=== PATIENT | male | born 1945 | race Caucasian/White ===

== ENCOUNTER 2018-07-26 13:54 | Observation (INO) | payer BC, MEDICARE ==
[2018-07-26] MEDS ORDERED: ASPIRIN 81 MG TABLET, CHEWABLE PO ONE (14:26)
[2018-07-26] MEDS ORDERED: MAG HYDROX/AL HYDROX/SIMETH SUSP 30 ML UDCUP PO ONE (14:26)
[2018-07-26] MEDS ORDERED: METOCLOPRAMIDE HCL ORAL SOLN 10 MG/10 ML UDCUP PO ONE (14:26)
[2018-07-26] MEDS ORDERED: LIDOCAINE 2% VISCOUS SOLN 20 ML UDCUP PO ONE (14:26)
--- NOTE | 2018-07-26 14:27 | ER Document Report ---
ED Medical Screen (RME) - General Chief Complaint: Chest Pain > 30 Stated Complaint: CHEST PAIN Time Seen by Provider: 07/26/18 14:21 Notes: 73 years old male has been seen any doctor for 5 years, presents today with 5 episodes of epigastric to substernal sharp pain on and off. Not associated with any other symptoms. Lasted only briefly. Normal examination TRAVEL OUTSIDE OF THE [place] IN LAST 30 DAYS: No - Related Data Allergies/Adverse Reactions: Penicillins Allergy (Verified 07/26/18 13:56) Physical Exam - Vital signs Vitals: Temp Pulse Resp BP Pulse Ox 97.6 F 74 18 166/84 H 98 07/26/18 14:08 07/26/18 14:08 07/26/18 14:08 07/26/18 14:08 07/26/18 14:08 Course - Vital Signs Vital signs: Temp Pulse Resp BP Pulse Ox 97.6 F 74 18 166/84 H 98 07/26/18 14:08 07/26/18 14:08 07/26/18 14:08 07/26/18 14:08 07/26/18 14:08
[2018-07-26 15:12] LABS: ABSOLUTE EOSINOPHILS # (AUTO) 0.2 10^3/uL (0.0-0.6); ABSOLUTE LYMPHOCYTES (AUTO) 1.6 10^3/uL (0.5-4.7); ABSOLUTE MONOCYTES (AUTO) 0.5 10^3/uL (0.1-1.4); ABSOLUTE NEUT (AUTO) 4.9 10^3/uL (1.7-8.2); BASOPHILS % (AUTO) 0.6 % (0-2); EOSINOPHILS % (AUTO) 2.7 % (0-6); HEMATOCRIT 39.9 % (37.9-51.0); LYMPHOCYTES % (AUTO) 22.6 % (13-45); MEAN CORPUSCULAR HEMOGLOBIN 32.2 pg (27.0-33.4); MEAN CORPUSCULAR HGB CONC 35.2 g/dL (32.0-36.0); MEAN CORPUSCULAR VOLUME 92 fl (80-97); MONOCYTES % (AUTO) 6.3 % (3-13); PLATELET COUNT 265 10^3/uL (150-450); RED BLOOD COUNT 4.35 10^6/uL (4.35-5.55); RED CELL DISTRIBUTION WIDTH 13.5 % (11.5-14.0); SEGMENTED NEUTROPHILS % (AUTO) 67.8 % (42-78); TOTAL CELLS COUNTED % (AUTO) 100 %; WHITE BLOOD COUNT 7.2 10^3/uL (4.0-10.5)
[2018-07-26 15:34] LABS: ALANINE AMINOTRANSFERASE 43 U/L (21-72); ALBUMIN 4.4 g/dL (3.5-5.0); ALKALINE PHOSPHATASE 75 U/L (38-126); ANION GAP 15 (5-19); ASPARTATE AMINO TRANSFERASE 31 U/L (17-59); BILIRUBIN,DIRECT 0.2 mg/dL (0.0-0.4); BILIRUBIN,TOTAL 0.4 mg/dL (0.2-1.3); BLOOD UREA NITROGEN 24 mg/dL (7-20); CALCIUM 9.9 mg/dL (8.4-10.2); CARBON DIOXIDE 28 mmol/L (22-30); CHLORIDE 101 mmol/L (98-107); CREATINE KINASE 110 U/L (55-170); GLUCOSE 123 mg/dL (75-110); POTASSIUM 4.2 mmol/L (3.6-5.0); SODIUM 143.5 mmol/L (137-145)
--- NOTE | 2018-07-26 15:40 | RADIOLOGY REPORT (SQ) ---
EXAM DESCRIPTION: CHEST SINGLE VIEW COMPLETED DATE/TIME: 07/26/2018 3:27 pm REASON FOR STUDY: Chest pain COMPARISON: None. EXAM PARAMETERS: NUMBER OF VIEWS: One view. TECHNIQUE: Single frontal radiographic view of the chest acquired. RADIATION DOSE: NA LIMITATIONS: None. FINDINGS: LUNGS AND PLEURA: No opacities, masses or pneumothorax. No pleural effusion. MEDIASTINUM AND HILAR STRUCTURES: No masses. Contour normal. HEART AND VASCULAR STRUCTURES: Cardiomegaly. BONES: No acute findings. HARDWARE: None in the chest. OTHER: No other significant finding. IMPRESSION: Cardiomegaly without acute abnormality of the lungs in AP projection. TECHNICAL DOCUMENTATION: JOB ID: [id number] [employer]- All Rights Reserved Reading location - IP/workstation name: [email or web address]
[2018-07-26 15:44] LABS: CREATINE KINASE MB 2.14 ng/mL (<4.55); TROPONIN I 0.018 ng/mL
--- NOTE | 2018-07-26 16:20 | ER Document Report ---
ED General - General Chief Complaint: Chest Pain > 30 Stated Complaint: CHEST PAIN Time Seen by Provider: 07/26/18 14:21 Notes: This is a 73-year-old male to the emergency department chief complaint of chest pain. Pain radiated up into the chest. Radiating to the back. No nausea. No vomiting. No fever. No other symptoms at this time. No cough. TRAVEL OUTSIDE OF THE [place] IN LAST 30 DAYS: No - Related Data Allergies/Adverse Reactions: Penicillins Allergy (Verified 07/26/18 13:56) Past Medical History - Social History Smoking Status: Never Smoker Chew tobacco use (# tins/day): No Frequency of alcohol use: wine Drug Abuse: None Lives with: Spouse/Significant other Family History: CAD, Hyperlipidemia, Hypertension Patient has suicidal ideation: No Patient has homicidal ideation: No - Past Medical History Cardiac Medical History: Reports: Hx Hypertension Endocrine Medical History: Reports: Other - Diabetes/metabolic syndrome Renal/ Medical History: Denies: Hx Peritoneal Dialysis Past Surgical History: Reports: Hx Orthopedic Surgery Review of Systems - Review of Systems Notes: Constitutional: denies: Chills, Diaphoresis, Fever, Malaise, Weakness EENT: denies: Eye discharge, Blurred vision, Tearing, Double vision, Nose congestion, Nose discharge, Throat swelling, Mouth pain Cardiovascular: Complaining of intermittent chest pain radiating to the back. No dyspnea. No orthopnea. Respiratory: denies: Cough, Hurts to breathe, Wheezing, Shortness of breath Gastrointestinal: denies: Abdominal pain, Diarrhea, Nausea, Vomiting, Black stools, bright red blood in stool Genitourinary: denies: Burning, Dysuria, Discharge, Frequency, Flank pain, Hematuria Musculoskeletal: denies: Joint pain, Joint swelling, Muscle pain, Muscle stiffness, back pain Hematologic/Lymphatic: denies: Anemia, Easy bleeding, Easy bruising, Blood clots Neurological/Psychological: denies: Confusion, Dementia, Depression, Loss of consciousness Skin: No lesions, no masses, no skin breakdown, no abscesses Physical Exam - Vital signs Vitals: Temp Pulse Resp BP Pulse Ox 97.6 F 74 18 166/84 H 98 07/26/18 14:08 07/26/18 14:08 07/26/18 14:08 07/26/18 14:08 07/26/18 14:08 Patient has obvious risk factors. Has a heart score of 5. No active chest pain did relieved with GI cocktail however uncomfortable contributing that to the cause of his chest pain. Would be better for him to have multiple sets of labs and a stress test done. Patient agrees to stay. Will consult with hospitalist for admission at this time. Laboratory 07/26/18 07/26/18 07/26/18 14:50 14:50 14:50 WBC 7.2 RBC 4.35 Hgb 14.0 Hct 39.9 MCV 92 MCH 32.2 MCHC 35.2 RDW 13.5 Plt Count 265 Seg Neutrophils % 67.8 Lymphocytes % 22.6 Monocytes % 6.3 Eosinophils % 2.7 Basophils % 0.6 Absolute Neutrophils 4.9 Absolute Lymphocytes 1.6 Absolute Monocytes 0.5 Absolute Eosinophils 0.2 Absolute Basophils 0.0 Sodium 143.5 Potassium 4.2 Chloride 101 Carbon Dioxide 28 Anion Gap 15 BUN 24 H Creatinine 0.89 Est GFR ( Amer) > 60 Est GFR (Non-Af Amer) > 60 Glucose 123 H Hemoglobin A1c % Calcium 9.9 Total Bilirubin 0.4 Direct Bilirubin 0.2 Neonat Total Bilirubin Not Reportable Neonat Direct Bilirubin Not Reportable Neonat Indirect Bili Not Reportable AST 31 ALT 43 Alkaline Phosphatase 75 Creatine Kinase 110 CK-MB (CK-2) 2.14 Troponin I 0.018 C-React Prot High Sens Total Protein 7.0 Albumin 4.4 Triglycerides Cholesterol LDL Cholesterol Direct VLDL Cholesterol HDL Cholesterol Lipase 07/26/18 07/26/18 07/26/18 14:50 14:50 14:50 WBC RBC Hgb Hct MCV MCH MCHC RDW Plt Count Seg Neutrophils % Lymphocytes % Monocytes % Eosinophils % Basophils % Absolute Neutrophils Absolute Lymphocytes Absolute Monocytes Absolute Eosinophils Absolute Basophils Sodium Potassium Chloride Carbon Dioxide Anion Gap BUN Creatinine Est GFR ( Amer) Est GFR (Non-Af Amer) Glucose Hemoglobin A1c % 5.7 Calcium Total Bilirubin Direct Bilirubin Neonat Total Bilirubin Neonat Direct Bilirubin Neonat Indirect Bili AST ALT Alkaline Phosphatase Creatine Kinase CK-MB (CK-2) Troponin I C-React Prot High Sens 2.3916 Total Protein Albumin Triglycerides 208 H Cholesterol 163.75 LDL Cholesterol Direct 100 VLDL Cholesterol 41.6 H HDL Cholesterol 42 Lipase 206.7 Chest X-Ray 07/26/18 14:26 IMPRESSION: Cardiomegaly without acute abnormality of the lungs in AP projection. Interpretation: Hypertensive - General General appearance: Appears well, Alert - HEENT Head: Normocephalic, Atraumatic Eyes: Normal Pupils: PERRL - Respiratory Respiratory status: No respiratory distress Chest status: Nontender Breath sounds: Normal Chest palpation: Normal - Cardiovascular Rhythm: Regular Heart sounds: Normal auscultation Murmur: No - Abdominal Inspection: Normal Distension: No distension Bowel sounds: Normal Tenderness: Nontender Organomegaly: No organomegaly - Back Back: Normal, Nontender - Extremities General upper extremity: Normal inspection, Nontender, Normal color, Normal ROM , Normal temperature General lower extremity: Normal inspection, Nontender, Normal color, Normal ROM , Normal temperature, Normal weight bearing. No: Godfrey's sign - Neurological Neuro grossly intact: Yes Cognition: Normal Orientation: AAOx4 [place] Coma Scale Eye Opening: Spontaneous [place] Coma Scale Verbal: Oriented [place] Coma Scale Motor: Obeys Commands [place] Coma Scale Total: 15 Speech: Normal Motor strength normal: LUE, RUE, LLE, RLE Sensory: Normal - Psychological Associated symptoms: Normal affect, Normal mood - Skin Skin Temperature: Warm Skin Moisture: Dry Skin Color: Normal Course - Vital Signs Vital signs: Temp Pulse Resp BP Pulse Ox 97.6 F 74 18 166/84 H 98 07/26/18 14:08 07/26/18 14:08 07/26/18 14:08 07/26/18 14:08 07/26/18 14:08 - Laboratory Result Diagrams: 07/26/18 14:50 07/26/18 14:50 Laboratory results interpreted by me: 07/26/18 07/26/18 14:50 14:50 BUN 24 H Glucose 123 H Triglycerides 208 H VLDL Cholesterol 41.6 H Discharge - Discharge Clinical Impression: Chest pain at rest Hypertension Qualifiers: Hypertension type: unspecified Qualified Code(s): I10 - Essential (primary) hypertension Hyperlipidemia Qualifiers: Hyperlipidemia type: unspecified Qualified Code(s): E78.5 - Hyperlipidemia, unspecified Disposition: ADMITTED INPATIENT Admitting Provider: [place] Hospitalist [facility] Unit Admitted: Telemetry
[2018-07-26 16:51] LABS: CHOLESTEROL 163.75 mg/dL (0-200); LIPASE 206.7 U/L (23-300); TRIGLYCERIDES 208 mg/dL (<150)
[2018-07-26 17:01] LABS: DIRECT LDL 100 mg/dL (<100)
[2018-07-26 17:02] LABS: VLDL CHOLESTEROL 41.6 mg/dL (10-31)
[2018-07-26] MEDS ORDERED: ONDANSETRON HCL INJ/PF 4 MG/2 ML SDV IV PRN (18:37)
[2018-07-26] MEDS ORDERED: DEXTROSE 50%-WATER 25 GM/50 ML DISP.SYRIN IV PRN ×2 (19:07)
[2018-07-26] MEDS ORDERED: DEXTROSE 40% GEL 15 GM TUBE PO PRN ×2 (19:07)
[2018-07-26] MEDS ORDERED: INSULIN REG, HUMAN 100 UNIT/ML 3 ML VIAL (PYX) SUBCUT PRN (19:07)
[2018-07-26] MEDS ORDERED: GLUCAGON,HUMAN RECOMB 1 MG INJ IM PRN (19:07)
--- NOTE | 2018-07-26 19:09 | PDOC H&P ---
History of Present Illness Admission Date/PCP: 07/26/18 18:17 Patient complains of: Chest pain History of Present Illness: GORDON ONELI is a 73 year old male with history of diabetes hypertension hyperlipidemia, gout, hypothyroidism came to the emergency room with complaints of chest pain started this morning. According to the patient patient is pain is midsternum sharp pain lasting for 5-10 seconds each episode no radiation associated with lightheadedness. He denies any previous episodes. He denies any lifting heavy weights. Pain is eased off in the ER. Past Medical History Cardiac Medical History: Reports: Hypertension Endocrine Medical History: Reports: Diabetes Mellitus Type 2, Other - Diabetes/ metabolic syndrome GI Medical History: Reports: Gastroesophageal Reflux Disease Past Surgical History Past Surgical History: Reports: Orthopedic Surgery Social History Lives with: Spouse/Significant other Smoking Status: Never Smoker Family History Family History: CAD, Hyperlipidemia, Hypertension Parental Family History Reviewed: Yes Children Family History Reviewed: Yes Sibling(s) Family History Reviewed.: Yes Medication/Allergy Allergies/Adverse Reactions: Penicillins Allergy (Verified 07/26/18 13:56) Review of Systems Constitutional: PRESENT: as per HPI Eyes: PRESENT: as per HPI Ears: PRESENT: as per HPI Nose, Mouth, and Throat: PRESENT: as per HPI Cardiovascular: PRESENT: as per HPI Gastrointestinal: PRESENT: as per HPI Genitourinary: PRESENT: as per HPI Integumentary: PRESENT: as per HPI Neurological: PRESENT: as per HPI Psychiatric: PRESENT: as per HPI Endocrine: PRESENT: as per HPI Physical Exam Vital Signs: Temp Pulse Resp BP Pulse Ox 97.6 F 74 18 166/84 H 98 07/26/18 14:08 07/26/18 14:08 07/26/18 14:08 07/26/18 14:08 07/26/18 14:08 General appearance: PRESENT: no acute distress Head exam: PRESENT: atraumatic Eye exam: PRESENT: PERRLA Mouth exam: PRESENT: moist Neck exam: ABSENT: carotid bruit, JVD, lymphadenopathy, thyromegaly Respiratory exam: PRESENT: clear to auscultation gennaro. ABSENT: rales, rhonchi, wheezes GI/Abdominal exam: PRESENT: normal bowel sounds, soft. ABSENT: distended, guarding, mass, organolmegaly, rebound, tenderness Neurological exam: PRESENT: alert, awake, oriented to person, oriented to place , oriented to time, oriented to situation, CN II-XII grossly intact. ABSENT: motor sensory deficit Psychiatric exam: PRESENT: appropriate affect, normal mood. ABSENT: homicidal ideation, suicidal ideation Skin exam: PRESENT: dry, intact, warm. ABSENT: cyanosis, rash Results Impressions: Chest X-Ray 07/26/18 14:26 IMPRESSION: Cardiomegaly without acute abnormality of the lungs in AP projection. Assessment & Plan - Diagnosis (1) Chest pain at rest Is this a current diagnosis for this admission?: Yes Plan: 07/26/2018 plan is to admit the patient observation. Stress test was ordered for tomorrow. He is going to be cardiac enzymes x3. Acute MD core measures implemented. He is going to be on aspirin 325 mg p.o. daily statins, lipid profile was ordered for tomorrow and he was placed on Lovenox 40 mg subcu daily. (2) Hyperlipidemia Qualifiers: Hyperlipidemia type: unspecified Qualified Code(s): E78.5 - Hyperlipidemia , unspecified Is this a current diagnosis for this admission?: Yes Plan: 07/26/2018 I am going to put him on simvastatin 40 mg p.o. nightly. LIPID profile for tomorrow. (3) Hypertension Qualifiers: Hypertension type: unspecified Qualified Code(s): I10 - Essential (primary ) hypertension Is this a current diagnosis for this admission?: Yes Plan: Patient's blood pressure today is 166/88 I am going to put him on lisinopril 20 mg p.o. daily. - Time Time Spent: 30 to 50 Minutes Medications reviewed and adjusted accordingly: Yes Anticipated discharge: Home
[2018-07-26] MEDS: LISINOPRIL 10 MG TABLET PO SCH (21:11)
[2018-07-26] MEDS: FAMOTIDINE 20 MG TABLET PO SCH (21:12)
[2018-07-26] MEDS ORDERED: SIMVASTATIN 40 MG TABLET PO SCH (22:00)
[2018-07-26] MEDS ORDERED: MAGNESIUM OXIDE 400 MG TABLET PO SCH (22:00)
[2018-07-27 00:16] LABS: CREATINE KINASE MB 1.37 ng/mL (<4.55); TROPONIN I 0.038 ng/mL
[2018-07-27 05:34] LABS: ABSOLUTE EOSINOPHILS # (AUTO) 0.2 10^3/uL (0.0-0.6); ABSOLUTE LYMPHOCYTES (AUTO) 1.7 10^3/uL (0.5-4.7); ABSOLUTE MONOCYTES (AUTO) 0.5 10^3/uL (0.1-1.4); ABSOLUTE NEUT (AUTO) 4.9 10^3/uL (1.7-8.2); BASOPHILS % (AUTO) 0.6 % (0-2); EOSINOPHILS % (AUTO) 2.8 % (0-6); HEMATOCRIT 37.9 % (37.9-51.0); HEMOGLOBIN 13.1 g/dL (13.5-17.0); LYMPHOCYTES % (AUTO) 23.5 % (13-45); MEAN CORPUSCULAR HEMOGLOBIN 31.7 pg (27.0-33.4); MEAN CORPUSCULAR HGB CONC 34.6 g/dL (32.0-36.0); MEAN CORPUSCULAR VOLUME 92 fl (80-97); MONOCYTES % (AUTO) 7.3 % (3-13); PLATELET COUNT 243 10^3/uL (150-450); RED BLOOD COUNT 4.13 10^6/uL (4.35-5.55); SEGMENTED NEUTROPHILS % (AUTO) 65.8 % (42-78); TOTAL CELLS COUNTED % (AUTO) 100 %; WHITE BLOOD COUNT 7.4 10^3/uL (4.0-10.5)
[2018-07-27 05:51] LABS: ANION GAP 9 (5-19); BLOOD UREA NITROGEN 22 mg/dL (7-20); CALCIUM 9.3 mg/dL (8.4-10.2); CARBON DIOXIDE 29 mmol/L (22-30); CHLORIDE 105 mmol/L (98-107); CHOLESTEROL 146.94 mg/dL (0-200); GLUCOSE 117 mg/dL (75-110); POTASSIUM 4.2 mmol/L (3.6-5.0); SODIUM 142.9 mmol/L (137-145); TRIGLYCERIDES 122 mg/dL (<150)
[2018-07-27 06:00] LABS: CREATINE KINASE MB 1.24 ng/mL (<4.55); TROPONIN I 0.036 ng/mL
[2018-07-27 06:02] LABS: DIRECT LDL 98 mg/dL (<100)
--- NOTE | 2018-07-27 09:32 | EKG REPORT ---
SEVERITY:- ABNORMAL ECG - SINUS RHYTHM FIRST DEGREE AV BLOCK PROBABLE LEFT ATRIAL ABNORMALITY ABNRM R PROG, CONSIDER ASMI OR LEAD PLACEMENT : Confirmed by: Renee Ricci 27-Jul-2018 09:31:53
[2018-07-27] MEDS ORDERED: ASPIRIN 325 MG TABLET PO SCH (10:00)
[2018-07-27] MEDS ORDERED: ENOXAPARIN SODIUM INJ 40 MG/0.4 ML DISP.SYRIN SUBCUT SCH (10:00)
[2018-07-27] MEDS: LISINOPRIL 10 MG TABLET PO SCH (11:41)
[2018-07-27] MEDS: FAMOTIDINE 20 MG TABLET PO SCH (11:41)
[2018-07-27 12:06] LABS: CREATINE KINASE MB 1.43 ng/mL (<4.55); TROPONIN I 0.025 ng/mL
[2018-07-27 16:46] VITALS: BP 141/78
--- NOTE | 2018-07-27 19:07 | PDOC DISCHARGE SUMMARY ---
General - Admit/Disc Date/PCP Admission Date/Primary Care Provider: 07/26/18 18:17 Discharge Date: 07/27/18 - Discharge Diagnosis (1) Chest pain Is this a current diagnosis for this admission?: Yes - Additional Information Discharge Diet: Cardiac Discharge Activity: Activity As Tolerated Prescriptions: Pantoprazole Sodium [Protonix] 40 mg PO QAM #30 tablet. Home Medications: Allopurinol [Zyloprim 300 mg Tablet] 300 mg PO DAILY 07/26/18 Aspirin [Joshua Chewable Aspirin] 81 mg PO DAILY 07/26/18 Benazepril HCl [Lotensin] 40 mg PO DAILY 07/26/18 Biotin 2,000 mcg PO DAILY 07/26/18 Cetirizine HCl [Zyrtec 10 mg Tablet] 10 mg PO DAILY 07/26/18 Doxylamine Succinate [Unisom Sleep Aid] 50 mg PO QHS 07/26/18 Hydrochlorothiazide [Hydrodiuril 25 mg Tablet] 25 mg PO DAILY 07/26/18 Ibuprofen [Motrin 600 mg Tablet] 600 mg PO TID 07/26/18 Latanoprost [Xalatan] 2.5 ml OU QHS 07/26/18 Levothyroxine Sodium 25 mcg PO Q6AM 07/26/18 Magnesium Oxide [Mag-Ox 400 mg Tablet] 400 mg PO QHS 07/26/18 Metformin HCl [Glucophage 500 mg Tablet] 500 mg PO BID 07/26/18 Multivit-Min/FA/Lycopen/Lutein [Centrum Silver Men Tablet] 1 each PO DAILY 07/26 [place]-3/Dha/Epa/Fish Oil [Fish Oil [place]-3 EC 1,200 mg] 2 tab PO DAILY 07/26/18 Potassium Gluconate [Potassium] 198 mg PO DAILY 07/26/18 Pravastatin Sodium [Pravachol] 80 mg PO QHS 07/26/18 Pantoprazole Sodium [Protonix] 40 mg PO QAM #30 tablet. 07/27/18 History of Present Illness History of Present Illness: Admitting hospitalist's H&P: GORDON ONEIL is a 73 year old male with history of diabetes hypertension hyperlipidemia, gout, hypothyroidism came to the emergency room with complaints of chest pain started this morning. According to the patient patient is pain is midsternum sharp pain lasting for 5-10 seconds each episode no radiation associated with lightheadedness. He denies any previous episodes. He denies any lifting heavy weights. Pain is eased off in the ER. Hospital Course Hospital Course: Mr. Murdock is a 73-year-old male who was admitted for chest pain. His EKG did not show any acute changes. Troponin was mildly elevated at 0.03 and trended down to 0.02. Patient has been chest pain-free since admission. He underwent stress testing. Discussed negative chest x-ray results with Dr. Lockhart. He did recommend having the patient follow-up with him for outpatient echo. Patient was given Dr. Lockhart's contact number to set up outpatient appointment. We did discuss other differentials for his chest pain including GERD. He will be empirically started on Protonix and will follow up with PCP to assess response to PPI. Also discussed gallbladder disease as possible source and patient and his preferred to pursue gallbladder ultrasound imaging upon outpatient follow-up with his PCP. Physical Exam Vital Signs: Temp Pulse Resp BP Pulse Ox 98.0 F 71 17 141/78 H 97 07/27/18 16:36 07/27/18 16:36 07/27/18 16:36 07/27/18 16:36 07/27/18 16:36 Intake & Output 07/26/18 07/27/18 07/28/18 06:59 06:59 06:59 Weight 214 lb 11.684 oz General appearance: PRESENT: no acute distress, well-developed, well-nourished Eye exam: PRESENT: conjunctiva pink, EOMI, PERRLA. ABSENT: scleral icterus Ear exam: PRESENT: normal external ear exam Mouth exam: PRESENT: moist, tongue midline Neck exam: ABSENT: carotid bruit, JVD, lymphadenopathy, thyromegaly Respiratory exam: PRESENT: clear to auscultation gennaro. ABSENT: rales, rhonchi, wheezes Cardiovascular exam: PRESENT: RRR. ABSENT: diastolic murmur, rubs, systolic murmur Pulses: PRESENT: normal dorsalis pedis pul GI/Abdominal exam: PRESENT: normal bowel sounds, soft. ABSENT: distended, guarding, mass, organolmegaly, rebound, tenderness Rectal exam: PRESENT: deferred Extremities exam: PRESENT: full ROM. ABSENT: calf tenderness, clubbing, pedal edema Neurological exam: PRESENT: alert, awake, oriented to person, oriented to place , oriented to time, oriented to situation, CN II-XII grossly intact. ABSENT: motor sensory deficit Results Laboratory Results: 07/27/18 05:19 07/27/18 05:19 07/27/18 07/27/18 07/27/18 05:19 05:19 05:19 WBC 7.4 RBC 4.13 L Hgb 13.1 L Hct 37.9 MCV 92 MCH 31.7 MCHC 34.6 RDW 14.0 Plt Count 243 Seg Neutrophils % 65.8 Lymphocytes % 23.5 Monocytes % 7.3 Eosinophils % 2.8 Basophils % 0.6 Absolute Neutrophils 4.9 Absolute Lymphocytes 1.7 Absolute Monocytes 0.5 Absolute Eosinophils 0.2 Absolute Basophils 0.0 Sodium 142.9 Potassium 4.2 Chloride 105 Carbon Dioxide 29 Anion Gap 9 BUN 22 H Creatinine 0.90 Est GFR ( Amer) > 60 Est GFR (Non-Af Amer) > 60 Glucose 117 H Calcium 9.3 Magnesium 2.2 Triglycerides 122 Cholesterol 146.94 LDL Cholesterol Direct 98 VLDL Cholesterol 24.0 HDL Cholesterol 39 L TSH 3.84 07/26/18 07/26/18 07/27/18 23:32 23:32 05:19 Creatine Kinase 77 63 CK-MB (CK-2) 1.37 Troponin I 0.038 07/27/18 07/27/18 07/27/18 05:19 11:26 11:26 Creatine Kinase 75 CK-MB (CK-2) 1.24 1.43 Troponin I 0.036 0.025 Impressions: Chest X-Ray 07/26/18 14:26 IMPRESSION: Cardiomegaly without acute abnormality of the lungs in AP projection. Qualifiers - * PATIENT BEING DISCHARGED WITH ANY OF THE FOLLOWING DIAGNOSIS: No
--- NOTE | 2018-07-27 21:18 | DRAGON STRESS TEST REPORT ---
Exercise EKG treadmill Cardiolite stress test using SPECT. Data procedure: 07/27/2018. Ordering Provider: . Patient Status: Inpatient. Indication:: Chest Pain. Coronary risk factors: Age, diabetes mellitus, hypertension, dyslipidemia, and family history of coronary artery disease.. Significant physical findings prior to stress testing show a blood pressure o 170/91 , and a heart rate of 72 beats per minute. Auscultation of the heart shows normal S1 and S2. No S3 or S4 gallops. Systolic murmur in the left sternal border and apex. Lungs are clear to auscultation and percussion. Resting 12-lead EKG:. Sinus Rhythm. Diffuse minor nonspecific ST-T changes. Procedure: The patient was excised on a standard Hari protocol. . The patient walked a total of 5 minutes and 26 seconds on this protocol and reached a peak heart rate of 146 beats per minute, which is 100% of maximum predicted heart rate for age. This is at a workload of 7.00 METS. The test was stopped because of achievement of 100% maximum predicted heart rate for age.. The patient described no symptoms of chest pain/discomfort . Exercise EKG: There is no EKG evidence of exercise-induced ischemia. Arrhythmias seen: None. The blood pressure response was normal. At peak exercise the blood pressure was 178/94 millimeters of Hg. The double product was 30.3 K. Summary of findings and interpretation: 1. No chest pain or chest discomfort symptoms reproduced. 2. No EKG evidence of ischemia in the form of ST segment depression. 3. Normal blood pressure response. 4. No] arrhythmias seen. 5. Fair exercise tolerance, fair aerobic capacity. Diagnostic treadmill stress test negative for ischemia by EKG criteria. Recommendations: Correlate with nuclear Cardiolite images. Nuclear data: At rest the patient was given 14.91 millicuries of technetium 99 sestamibi, and as per protocol rest none gated SPECT images were obtained. The patient was exercised on a treadmill [see exercise physiology]. One minute prior to termination of exercise, 43.4 millicuries of technetium and there sestamibi was injected intravenously. As per protocol stress gated images were obtained. Impression: Review of images show that all segments of the myocardium had normal perfusion at rest, and normal perfusion post exercise. All segments of the myocardium had normal motion, and thickening by gated study. This seems to be moderate global hypokinesis. T. I D. ratio was normal at 1.03. There was no transient ischemic dilatation of the left ventricle. The computer read rest and stress left ventricular ejection fractions were 46 %, and 30 % respectively. Visually both the ejection fractions were abnormal and around 45%. Conclusions: 1. No clinical symptoms of exercise-induced myocardial ischemia at a peak heart rate of[146 beats per minute, patient having achieved 100 % of maximum predicted heart rate for age, at a workload of 7 METS. 2. No EKG evidence of exercise-induced myocardial ischemia. 3. No arrhythmias seen. 4.No scintigraphic evidence of exercise-induced myocardial ischemia. 5.No scintigraphic evidence of myocardial infarction/scar. 6. There seems to be a element of cardiomyopathy with LV ejection fraction of 45% visually. Recommendations 1.Aggressive coronary risk factor modificnd treatment of underlying comorbidities.ation, 2. Recommend getting an echocardiogram for LV ejection fraction correlation. 3. The patient will benefit from outpatient cardiology follow-up, with a insole toe snipping machine operator of the patient's choice. a [facility]
== END 2018-07-27 17:00 | disposition home or self-care (01) ==
LOC: ER 13:54 → EH 18:17 → INTOOBSV 18:17 → 4S 20:14
PROVIDERS: ADMIT Internal Medicine; ATTEND Internal Medicine
DX: R07.9 Chest pain, unspecified (principal); E78.5 Hyperlipidemia, unspecified; I10 Essential (primary) hypertension; M10.9 Gout, unspecified; E11.9 Type 2 diabetes mellitus without complications; E03.9 Hypothyroidism, unspecified; R42 Dizziness and giddiness; Z79.899 Other long term (current) drug therapy; Z79.82 Long term (current) use of aspirin; Z82.49 Family history of ischemic heart disease and other diseases of the circulatory system; Z79.84 Long term (current) use of oral hypoglycemic drugs
CPT/HCPCS: 93005; 99285; 36415 ×2; 82553 ×2; 82962 ×2; 82550 ×2; 83690; 83735; 84443; 85025 ×2; 80048; 80053; 83695; 84484 ×2; 83036; 86141; 80061 ×2; 83880; 93017; 71045; 78452; 93010; G0378 ×3; A9500; J3490 ×2; J1650; Q9969

== ENCOUNTER → 2020-02-25 | Outpatient (CLI) | payer OTHER, MEDICARE ==
[2020-02-25 13:09] LABS: ANION GAP 9 (5-19); BLOOD UREA NITROGEN 14 mg/dL (7-20); CALCIUM 9.9 mg/dL (8.4-10.2); CARBON DIOXIDE 26 mmol/L (22-30); CHLORIDE 103 mmol/L (98-107); GLUCOSE 107 mg/dL (75-110); POTASSIUM 4.6 mmol/L (3.6-5.0)
== END ==
LOC: OD 12:13
PROVIDERS: ATTEND Anesthesiology
DX: E11.8 Type 2 diabetes mellitus with unspecified complications (principal)
CPT/HCPCS: 36415; 80048

== ENCOUNTER 2020-02-27 20:32 | Emergency (ER) | payer OTHER, MEDICARE ==
--- NOTE | 2020-02-27 21:16 | ER Document Report ---
ED Medical Screen (RME) - General Chief Complaint: Post Surgical Bleeding Stated Complaint: POST OP BLEEDING AND SWELLING Time Seen by Provider: 02/27/20 20:55 Primary Care Provider: ZAIDA OCHOA MD [Primary Care Provider] - Follow up as needed TRAVEL OUTSIDE OF THE [place] IN LAST 30 DAYS: No - HPI Notes: 02/27/20 21:16 74-year-old male with a history of diabetes, hyper lipidemia, hypothyroidism presents to the emergency room for trouble breathing status post having a cervical laminectomy done by Dr. Nation this morning and was discharged early this afternoon from [facility]. Patient did undergo anesthesia. patient states he had trouble breathing for about 30 minutes prior to coming to the emergency room. In triage blood pressures 198/118, heart rate 132 pulse ox 96%. Patient able to speak without any issues. was concerned concerned about his trouble with breathing and bleeding around the surgical site. Tried to call surgeon but unable to get a hold of him, went to answering service. 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 is an excellent historian for patient. Patient has resumed his at home medications. I have greeted and performed a rapid initial assessment of this patient. A comprehensive ED assessment and evaluation of the patient, analysis of test results and completion of the medical decision making process will be conducted by additional ED providers. PHYSICAL EXAMINATION: GENERAL: Well-appearing, well-nourished and in no acute distress. HEAD: Atraumatic, normocephalic. EYES: Pupils equal round extraocular movements intact, conjunctiva are normal. NECK: Normal range of motion. Left lateral aspect of anterior cervical spine with approximately 3 inch vertical laceration with Steri-Strips with active bleeding. CV: Tachycardic LUNGS: Diminished breath sounds in upper lobes Musculoskeletal: Normal range of motion NEUROLOGICAL: Normal speech, normal gait. Discussed case with Dr. Benny verdugo, ER supervising physician at 2100. Advised for CTA of neck and head along with labs. Recheck vital signs showed a blood pressure of 158/123, heart rate 132, pulse ox 96% by this provider - Related Data Allergies/Adverse Reactions: Penicillins Allergy (Verified 07/26/18 13:56) Home Medications: Oxycodone. Meloxican. Lasix. Benazepril. Alloparinol. Synthroid. metoprolol. Provastatin. Metformin. Timolol. Latanopost. resonide. ketaconozole. Tylenol. Potassium. Biotin. Centrum. ASA. fish oil. unison. Biofreeze. unison Past Medical History - Social History Chew tobacco use (# tins/day): No Frequency of alcohol use: Rare Drug Abuse: None - Past Medical History Cardiac Medical History: Reports: Hx Hypertension Endocrine Medical History: Reports: Hx Diabetes Mellitus Type 2 Renal/ Medical History: Denies: Hx Peritoneal Dialysis GI Medical History: Reports: Hx Gastroesophageal Reflux Disease Psychiatric Medical History: Denies: Hx Depression Past Surgical History: Reports: Hx Orthopedic Surgery Physical Exam - Vital signs Vitals: Temp Pulse Resp BP Pulse Ox 97.7 F 125 H 21 H 194/111 H 96 02/27/20 20:55 02/27/20 20:55 02/27/20 20:55 02/27/20 20:55 02/27/20 20:55 Course - Vital Signs Vital signs: Temp Pulse Resp BP Pulse Ox 97.7 F 125 H 21 H 194/111 H 96 02/27/20 20:56 02/27/20 20:55 02/27/20 20:55 02/27/20 20:55 02/27/20 20:55 Doctor's Discharge - Discharge Referrals: ZAIDA OCHOA MD [Primary Care Provider] - Follow up as needed
[2020-02-27 21:26] LABS: ABSOLUTE LYMPHOCYTES (AUTO) 0.8 10^3/uL (0.5-4.7); ABSOLUTE MONOCYTES (AUTO) 0.2 10^3/uL (0.1-1.4); ABSOLUTE NEUT (AUTO) 13.2 10^3/uL (1.7-8.2); BASOPHILS % (AUTO) 0.1 % (0-2); HEMATOCRIT 45.6 % (37.9-51.0); HEMOGLOBIN 15.2 g/dL (13.5-17.0); LYMPHOCYTES % (AUTO) 5.4 % (13-45); MEAN CORPUSCULAR HEMOGLOBIN 31.7 pg (27.0-33.4); MEAN CORPUSCULAR HGB CONC 33.4 g/dL (32.0-36.0); MEAN CORPUSCULAR VOLUME 95 fl (80-97); MONOCYTES % (AUTO) 1.4 % (3-13); PLATELET COUNT 244 10^3/uL (150-450); RED CELL DISTRIBUTION WIDTH 15.1 % (11.5-14.0); SEGMENTED NEUTROPHILS % (AUTO) 93.1 % (42-78); TOTAL CELLS COUNTED % (AUTO) 100 %; WHITE BLOOD COUNT 14.1 10^3/uL (4.0-10.5)
--- NOTE | 2020-02-27 21:39 | ER Document Report ---
ED General - General Chief Complaint: Post Surgical Bleeding Stated Complaint: POST OP BLEEDING AND SWELLING Time Seen by Provider: 02/27/20 20:55 Primary Care Provider: ZAIDA OCHOA MD [Primary Care Provider] - Follow up as needed Mode of Arrival: Ambulatory Information source: Patient, Parent - Notes: 02/27/20 20:58 - ED Nursing Note by ERICK SHEEHAN Acct Num: [id number] : 1945 Patient Age: 74 Pt reports having a cervical laminectomy this morning in [place]. Reports post surgical bleeding. 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 Pt denies any trouble breathing at this point. No profuse bleeding noted. Dressing and steri strips intake. Deep labored breathing noted. Zoraida notes 02/27/20 21:16 74-year-old male with a history of diabetes, hyper lipidemia, hypothyroidism presents to the emergency room for trouble breathing status post having a cervical laminectomy done by Dr. Nation this morning and was discharged early this afternoon from [facility]. Patient did undergo anesthesia. patient states he had trouble breathing for about 30 minutes prior to coming to the emergency room. In triage blood pressures 198/118, heart rate 132 pulse ox 96%. Patient able to speak without any issues. was concerned concerned about his trouble with breathing and bleeding around the surgical site. Tried to call surgeon but unable to get a hold of him, went to answering service. 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 is an excellent historian for patient. Patient has resumed his at home medications. my notes I was called to room by Max RUBIO for this 74-year-old male with tachycardia and high BP 198/120. Patient reports he had cervical surgery laminectomy between 0 930 this morning and was discharged at 1400 this afternoon. 1 hour ago patient reports he began to have some bleeding from his surgery site of his anterior neck. He also is bit tachycardic at 127. He reports prior to going in to see the surgeon he has some shortness of breath. He is very apprehensive about medicine because when he was at [facility] they bottomed out his blood pressure after giving him some medicine for his high heart rate and his high blood pressure. For this reason they requested Dr. Westbrook to be called. I called him at 2153 and he advises avoiding any calcium b lockers because of a dysfunctional LV dilated with 35% ejection fraction. He advises some beta-blockers at low dose instead. Patient received a CT of head and neck as ordered by Liya at triage. TRAVEL OUTSIDE OF THE [place] IN LAST 30 DAYS: No - HPI Onset: Just prior to arrival Onset/Duration: Sudden, Persistent Quality of pain: Achy Severity: Mild Pain Level: 1 Associated symptoms: Shortness of breath, Weakness Exacerbated by: Movement, Deep breathing Relieved by: Denies Similar symptoms previously: Yes Recently seen / treated by doctor: Yes - Related Data Allergies/Adverse Reactions: Penicillins Allergy (Verified 07/26/18 13:56) Home Medications: Oxycodone. Meloxican. Lasix. Benazepril. Alloparinol. Synthroid. metoprolol. Provastatin. Metformin. Timolol. Latanopost. resonide. ketaconozole. Tylenol. Potassium. Biotin. Centrum. ASA. fish oil. unison. Biofreeze. unison Past Medical History - General Information source: Patient, Parent - Social History Smoking Status: Never Smoker Cigarette use (# per day): No Chew tobacco use (# tins/day): No Smoking Education Provided: No Frequency of alcohol use: Rare Drug Abuse: None Lives with: Family Family History: Reviewed & Not Pertinent, CAD, Hyperlipidemia, Hypertension Patient has suicidal ideation: No Patient has homicidal ideation: No - Past Medical History Cardiac Medical History: Reports: Hx Hypertension Endocrine Medical History: Reports: Hx Diabetes Mellitus Type 2 Renal/ Medical History: Denies: Hx Peritoneal Dialysis GI Medical History: Reports: Hx Gastroesophageal Reflux Disease Psychiatric Medical History: Denies: Hx Depression Past Surgical History: Reports: Hx Orthopedic Surgery Review of Systems - Review of Systems Constitutional: See HPI, Weakness EENT: See HPI, Other - Anterior neck pain left side with bleeding with bandage over wound surgical. Cardiovascular: See HPI, Chest pain, Heart racing, Orthopnea, Dyspnea Respiratory: See HPI, Short of breath Gastrointestinal: No symptoms reported Genitourinary: No symptoms reported Male Genitourinary: No symptoms reported Musculoskeletal: No symptoms reported Skin: No symptoms reported Hematologic/Lymphatic: No symptoms reported Neurological/Psychological: No symptoms reported Physical Exam - Vital signs Vitals: Temp Pulse Resp BP Pulse Ox 97.7 F 125 H 21 H 194/111 H 96 02/27/20 20:55 02/27/20 20:55 02/27/20 20:55 02/27/20 20:55 02/27/20 20:55 Interpretation: Hypertensive, Tachycardic - 7 years old that was there is a DKA only 7 years old terrible thanks - General General appearance: Alert, Anxious - HEENT Head: Normocephalic, Atraumatic Eyes: Normal Pupils: PERRL Sinus: Normal Nasal: Normal Mouth/Lips: Normal Mucous membranes: Normal Pharynx: Normal Neck: Other - Left anterior neck with surgical wound bleeding controlled at this time. - Respiratory Respiratory status: No respiratory distress Chest status: Nontender Breath sounds: Normal Chest palpation: Normal - Cardiovascular Rhythm: Tachycardia Heart sounds: Normal auscultation Murmur: No - Abdominal Inspection: Normal Distension: No distension Bowel sounds: Normal Tenderness: Nontender Organomegaly: No organomegaly - Rectal Hemorrhoids: Other - deferred - Genitourinary Scrotum: Other - deferred - Back Back: Normal - Extremities General upper extremity: Normal inspection, Nontender, Normal color, Normal ROM, Normal temperature General lower extremity: Normal inspection, Nontender, Normal color, Normal ROM, Normal temperature, Normal weight bearing. No: Godfrey's sign - Neurological Neuro grossly intact: Yes Cognition: Normal Orientation: AAOx4 Tonya Coma Scale Eye Opening: Spontaneous [place] Coma Scale Verbal: Oriented [place] Coma Scale Motor: Obeys Commands [place] Coma Scale Total: 15 Speech: Normal Motor strength normal: LUE, RUE, LLE, RLE Sensory: Normal - Psychological Associated symptoms: Anxious - Skin Skin Temperature: Warm Skin Moisture: Dry Course - Vital Signs Vital signs: Temp Pulse Resp BP Pulse Ox 97.7 F 125 H 18 179/113 H 92 02/27/20 20:56 02/27/20 20:55 02/28/20 00:01 02/28/20 00:00 02/28/20 00:01 - Laboratory Result Diagrams: 02/27/20 21:15 02/27/20 21:15 Laboratory results interpreted by me: 02/27/20 02/27/20 02/27/20 21:15 21:15 21:15 WBC 14.1 H RDW 15.1 H Lymph % (Auto) 5.4 L Garland % (Auto) 1.4 L Absolute Neuts (auto) 13.2 H Seg Neutrophils % 93.1 H Glucose 206 H NT-Pro-B Natriuret Pep 5060 H Albumin 5.3 H - Diagnostic Test Radiology reviewed: Reports reviewed - EKG Interpretation by Me EKG shows normal: Sinus rhythm Rate: Tachycardia Critical Care Note - Critical Care Note Total time excluding time spent on procedures (mins): 60 Comments: I discussed this case with Dr. Westbrook at 2089 and he advises avoiding any calcium blockers because patient has 35% ejection fraction with dilated LV dysfunction and recommends beta-emerita like labetalol. Patient is also a drinker with a bottle of wine per night. Discharge - Discharge Clinical Impression: Tachycardia, Status post neck surgery, follow-up exam Hypertension Qualifiers: Hypertension type: unspecified Qualified Code(s): I10 - Essential (primary) hypertension Condition: Good Disposition: HOME, SELF-CARE Additional Instructions: Follow-up with personal doctor and call your surgeon tomorrow about your neck complaint. Return to ER as needed take medicines as directed encourage fluids and try to get some sleep tonight. Referrals: ZAIDA OCHOA MD [Primary Care Provider] - Follow up as needed
[2020-02-27 21:45] LABS: ALBUMIN 5.3 g/dL (3.5-5.0); ALKALINE PHOSPHATASE 75 U/L (38-126); ANION GAP 13 (5-19); ASPARTATE AMINO TRANSFERASE 42 U/L (17-59); BILIRUBIN,TOTAL 0.8 mg/dL (0.2-1.3); BLOOD UREA NITROGEN 14 mg/dL (7-20); CALCIUM 9.9 mg/dL (8.4-10.2); CARBON DIOXIDE 25 mmol/L (22-30); CHLORIDE 100 mmol/L (98-107); GLUCOSE 206 mg/dL (75-110); POTASSIUM 4.4 mmol/L (3.6-5.0); TOTAL PROTEIN 8.1 g/dL (6.3-8.2)
[2020-02-27 21:46] LABS: INTERNATIONAL RATION (INR) 0.99; PROTHROMBIN TIME 13.1 SEC (11.4-15.4)
[2020-02-27] MEDS ORDERED: LABETALOL HCL INJ 20 MG/4 ML DISP.SYRIN IV ONE (21:53)
[2020-02-27] MEDS ORDERED: LORAZEPAM INJ 2 MG/1 ML VIAL IV ONE (22:07)
[2020-02-27] MEDS ORDERED: NORMAL SALINE 500 ML IV ONE (22:07)
[2020-02-27] MEDS ORDERED: THIAMINE HCL 100 MG, FOLIC ACID 1 MG in NORMAL SALINE 250 ML IV ONE (22:07)
[2020-02-27] MEDS ORDERED: THIAMINE HCL INJ 200 MG/2 ML VIAL ONE (22:14)
[2020-02-27 22:21] LABS: PARTIAL THROMBOPLASTIN TIME 29.7 SEC (23.5-35.8)
[2020-02-27] MEDS ORDERED: FOLIC ACID INJ 5 MG/1 ML 10 ML VIAL ONE (22:22)
--- NOTE | 2020-02-27 22:27 | RADIOLOGY REPORT (SQ) ---
EXAM DESCRIPTION: XR CHEST 1 VIEW COMPLETED DATE/TME: 02/27/2020 21:41 CLINICAL HISTORY: 74 years Male sob COMPARISON: 07/26/2018. FINDINGS: Cardiac enlargement which appears stable. Calcified aorta. Degenerative changes in the spine. No acute consolidation. Small amount of blunting of the left costophrenic angle similar to the previous study likely related to scarring. No new area of infiltrate is noted. IMPRESSION: Stable cardiac enlargement No evidence of acute process
[2020-02-27] MEDS ORDERED: FOLIC ACID INJ 5 MG/1 ML 10 ML VIAL IV ONE (22:30)
[2020-02-27] MEDS ORDERED: THIAMINE HCL 100 MG in NORMAL SALINE 50 ML IV ONE (22:31)
--- NOTE | 2020-02-27 22:31 | RADIOLOGY REPORT (SQ) ---
EXAM DESCRIPTION: Unenhanced CT scan of the brain followed by CT angiogram of the neck and head. CLINICAL HISTORY: 74 years Male trouble breathing s/p laminectomy x8hr ago,+bleeding. CREAT 0.87 TECHNIQUE: Noncontrast CT of the head. CT angiogram head and neck performed using intravenous contrast.. MIP reconstructions were performed. Stenosis measurements obtained using NASCET criteria. All CT scans at this facility use dose modulation, iterative reconstruction, and/or weight based dosing when appropriate to reduce radiation dose to as low as reasonably achievable. COMPARISON: None. FINDINGS: Noncontrast CT: Intracranial contents: The brain parenchyma is unremarkable. Specifically, there is no evidence of hemorrhage, mass lesion or midline shift. No abnormal extra-axial fluid collections. Ventricles and cisterns are patent. Mild diffuse global volume loss is noted. There is subtle low density in the periventricular white matter suggesting small vessel ischemic change. Calvaria: Calvaria is intact. Visualized portions of the orbits are unremarkable. Mastoid air cells are clear. There is scattered mucosal thickening in the maxillary sinuses bilaterally. No air-fluid levels. CTA Neck: Aortic arch: Minimal plaque is seen in the aortic arch. The proximal great vessels are normal. The left vertebral artery arises directly from the aortic arch. Right carotid: No focal stenosis or intraluminal filling defects. Left carotid: The common, internal and external carotid artery are patent. No dissection. No pseudoaneurysm. There is minimal plaque at the carotid bifurcation. No stenosis. No contrast extravasation. Right vertebral: No focal stenosis or intraluminal filling defects. Left vertebral: No focal stenosis or intraluminal filling defects. Air is present in the soft tissues in the midline and in the left anterior neck. This is consistent with recent cervical spine instrumentation. Mild dependent densities present in the posterior aspect of the lungs. The airway is patent. There is mild mass effect on the left posterior pharynx related to edema and hardware. Globes are intact. No intra or extraconal abnormality. Thyroid gland is unremarkable. Visualized portion of the pulmonary arteries are patent. CTA Head: ICA: patent Vertebrals: patent Basilar:patent FACTORY MAINTENANCE MANAGER: patent bilaterally Posterior communicating arteries:patent Anterior communicating artery: patent JAIMIE: patent bilaterally MCA: patent bilaterally No aneurysm. No intra-arterial filling defects. Reyes matter enhancement is symmetric. No filling defects in the major dural venous sinuses. IMPRESSION: Air in the soft tissues of the left neck related to recent surgery. No evidence of vascular abnormality. Scattered mucosal thickening in the maxillary sinuses bilaterally. Mild dependent density in the lung bases posteriorly.
[2020-02-28] MEDS ORDERED: LABETALOL HCL INJ 20 MG/4 ML DISP.SYRIN IV ONE (00:11)
[2020-02-28 00:35] VITALS: BP 165/110
--- NOTE | 2020-02-28 07:50 | EKG REPORT ---
SEVERITY:- ABNORMAL ECG - SINUS TACHYCARDIA ABNRM R PROG, CONSIDER ASMI OR LEAD PLACEMENT REPOL ABNRM SUGGESTS ISCHEMIA, DIFFUSE LEADS PROLONGED QT INTERVAL : Confirmed by: Seth Swann MD 28-Feb-2020 07:49:41
== END 2020-02-28 00:33 | disposition home or self-care (01) ==
LOC: ER 20:32
DX: R00.0 Tachycardia, unspecified (principal); R53.1 Weakness; R07.9 Chest pain, unspecified; I10 Essential (primary) hypertension; Z98.890 Other specified postprocedural states; E78.5 Hyperlipidemia, unspecified; E03.9 Hypothyroidism, unspecified; E11.9 Type 2 diabetes mellitus without complications; Z79.4 Long term (current) use of insulin; Z79.899 Other long term (current) drug therapy
CPT/HCPCS: 93005; 99285; 96375; 96365; 36415; 85025; 85610; 85730; 80053; 84484; 83880; 71045; 70496; 70498; 93010; J3490 ×2; J2060; J3411; J7040

== ENCOUNTER 2020-03-11 18:45 | Emergency (ER) | payer OTHER, MEDICARE ==
--- NOTE | 2020-03-11 19:47 | RADIOLOGY REPORT (SQ) ---
EXAM DESCRIPTION: CHEST SINGLE VIEW IMAGES COMPLETED DATE/TIME: 03/11/2020 7:24 pm REASON FOR STUDY: chest pain COMPARISON: 02/27/2020 EXAM PARAMETERS: NUMBER OF VIEWS: One view. TECHNIQUE: Single frontal radiographic view of the chest acquired. RADIATION DOSE: NA LIMITATIONS: None. FINDINGS: LUNGS AND PLEURA: No opacities, masses or pneumothorax. No pleural effusion. MEDIASTINUM AND HILAR STRUCTURES: No masses. Contour normal. HEART AND VASCULAR STRUCTURES: Heart size is borderline. No pulmonary cup edema. BONES: No acute findings. HARDWARE: None in the chest. OTHER: No other significant finding. IMPRESSION: Stable borderline heart size with no pulmonary edema. TECHNICAL DOCUMENTATION: JOB ID: [id number] 2010 [employer] (P)- All Rights Reserved Reading location - IP/workstation name: [email or web address]
[2020-03-11 19:56] LABS: ABSOLUTE EOSINOPHILS # (AUTO) 0.1 10^3/uL (0.0-0.6); ABSOLUTE LYMPHOCYTES (AUTO) 1.5 10^3/uL (0.5-4.7); ABSOLUTE MONOCYTES (AUTO) 0.7 10^3/uL (0.1-1.4); ABSOLUTE NEUT (AUTO) 10.6 10^3/uL (1.7-8.2); BASOPHILS % (AUTO) 0.3 % (0-2); HEMATOCRIT 40.2 % (37.9-51.0); HEMOGLOBIN 13.3 g/dL (13.5-17.0); LYMPHOCYTES % (AUTO) 11.3 % (13-45); MEAN CORPUSCULAR HEMOGLOBIN 30.9 pg (27.0-33.4); MEAN CORPUSCULAR VOLUME 93 fl (80-97); MONOCYTES % (AUTO) 5.3 % (3-13); PLATELET COUNT 282 10^3/uL (150-450); SEGMENTED NEUTROPHILS % (AUTO) 82.1 % (42-78); TOTAL CELLS COUNTED % (AUTO) 100 %; WHITE BLOOD COUNT 12.9 10^3/uL (4.0-10.5)
[2020-03-11 20:05] LABS: ALBUMIN 3.8 g/dL (3.5-5.0); ALKALINE PHOSPHATASE 79 U/L (38-126); ANION GAP 7 (5-19); ASPARTATE AMINO TRANSFERASE 25 U/L (17-59); BILIRUBIN,DIRECT 0.1 mg/dL (0.0-0.4); BILIRUBIN,TOTAL 0.4 mg/dL (0.2-1.3); BLOOD UREA NITROGEN 16 mg/dL (7-20); CALCIUM 9.3 mg/dL (8.4-10.2); CARBON DIOXIDE 29 mmol/L (22-30); CHLORIDE 101 mmol/L (98-107); CREATINE KINASE 31 U/L (55-170); GLUCOSE 143 mg/dL (75-110); POTASSIUM 4.3 mmol/L (3.6-5.0); TOTAL PROTEIN 6.2 g/dL (6.3-8.2)
[2020-03-11 20:16] LABS: CREATINE KINASE MB 1.29 ng/mL (<4.55); TROPONIN I 0.027 ng/mL
--- NOTE | 2020-03-11 20:50 | RADIOLOGY REPORT (SQ) ---
EXAM DESCRIPTION: CT ABDOMEN PELVIS ANGIOGRAPHY WITH IV CONTRAST COMPLETED DATE/TME: 03/11/2020 19:50 CLINICAL HISTORY: 74 years, Male, pain, hypotension, evaluate aorta COMPARISON: None. TECHNIQUE: Axial images with IV contrast. Contrast dose not available. Arterial phase followed by delayed phase. MIP reconstruction. All CT scanners at this facility use dose modulation, iterative reconstruction, and/or weight based dosing when appropriate to reduce radiation dose to as low as reasonably achievable (ALARA). FINDINGS: Suspected fatty liver without focal lesions. Spleen, pancreas, biliary system, adrenal glands, para-aortic regions kidneys are unremarkable. Abdominal aorta demonstrated with minimal atherosclerotic changes. No significant dilatation or narrowing. No dissection. Aortic branches are unremarkable. Diffuse colonic diverticulosis. No acute bowel or peritoneal abnormalities. Multiple levels of moderate spinal stenosis. CTA of the pelvis demonstrates unremarkable iliac and common femoral arteries. Urinary bladder distended. Moderate to prominent enlargement of the prostate. Right inguinal hernia with herniation of fat. Distal colon is unremarkable. No adenopathy or free fluid. IMPRESSION: 1. No evidence for aortic dissection. No significant vascular abnormality. 2. Mild fatty liver. Multiple levels of spinal stenosis in the lumbar spine greater at L2-3 and L3-4. 3. Upper abdominal colonic diverticulosis without acute diverticulitis. 4. Enlarged prostate. Right inguinal hernia with herniation of fat but not bowel.
--- NOTE | 2020-03-11 20:59 | RADIOLOGY REPORT (SQ) ---
EXAM DESCRIPTION: CT CHEST ANGIOGRAPHY WITHOUT THEN WITH IV CONTRAST COMPLETED DATE/TME: 03/11/2020 19:49 CLINICAL HISTORY: 74 years, Male, CP, hypotension. Dissection protocol. COMPARISON: CT of the neck from 02/27/2020. TECHNIQUE: Axial images with IV contrast. MIP reconstruction. The foramen significant distention.. All CT scanners at this facility use dose modulation, iterative reconstruction, and/or weight based dosing when appropriate to reduce radiation dose to as low as reasonably achievable (ALARA). FINDINGS: No evidence for central pulmonary embolus. Peripheral vessels not optimally evaluated. Aorta demonstrated without dilatation or dissection. Mild to moderate left cardiomegaly. Tiny mediastinal lymph nodes. No suspicious adenopathy. Mild upper esophageal dilatation. Appears to be compressed by the left atrium. Nonspecific mild interstitial prominence. No significant acute lung or pleural abnormalities. IMPRESSION: 1. No evidence for aortic dissection or dilatation. 2. Mild to moderate left cardiomegaly. No central PE. No significant acute lung or pleural abnormalities.
[2020-03-12 00:09] VITALS: BP 174/97
--- NOTE | 2020-03-12 05:43 | ER Document Report ---
Entered by SAQIB ESQUEDA SCRIBE 03/11/201936 Acting as scribe for:LEONEL MARIANO DO ED Cardiac - General Chief Complaint: Chest Pain Stated Complaint: AMS/CHEST PAIN Time Seen by Provider: 03/11/20 19:01 Primary Care Provider: ZAIDA OCHOA MD [NO LOCAL MD] - Follow up in 3-5 days Mode of Arrival: Ambulatory Information source: Patient Notes: This 74 year old male patient presents to the emergency department today with c omplaints of chest pain with associated syncope prior to arrival. Patient had a cervical laminectomy with an anterior approach last week. Patient states he did not feel well today, describing a chest pain that radiates across his chest. He states he laid down to take a nap, woke up about an hour later and it was no better, perhaps worse. He decided he wanted to go outside and go for a walk but once he got outside him and his decided to sit down on the swing because he was not feeling well. Family member took his blood pressure at this time and she got a reading of 198/100. She states that shortly after this he said he needed to go to the bathroom and she helped him inside to the bathroom and when they got close to the bathroom she noticed that he "was very wobbly on his feet, and had urinated on himself". Patient states he does not remember any of this. Family states she sat him on the commode and cleaned him up, changed his clothes ,and then stood him up and he passed out. Patient had a clean cardiac cath in 2018. Family mentions that the patient has had a slight cough since the cervical laminectomy with associated shortness of breath. TRAVEL OUTSIDE OF THE [place] IN LAST 30 DAYS: No - Related Data Allergies/Adverse Reactions: Penicillins Allergy (Verified 03/11/20 19:17) Past Medical History - General Information source: Patient - Social History Smoking Status: Never Smoker Cigarette use (# per day): No Chew tobacco use (# tins/day): No Frequency of alcohol use: None Drug Abuse: None Occupation: retired Lives with: Family Family History: Reviewed & Not Pertinent, CAD, Hyperlipidemia, Hypertension - Past Medical History Cardiac Medical History: Reports: Hx Hypertension Endocrine Medical History: Reports: Hx Diabetes Mellitus Type 2 GI Medical History: Reports: Hx Gastroesophageal Reflux Disease Past Surgical History: Reports: Hx Orthopedic Surgery Review of Systems - Review of Systems Constitutional: No symptoms reported EENT: No symptoms reported Cardiovascular: See HPI, Chest pain, Syncope Respiratory: See HPI, Cough, Short of breath Gastrointestinal: No symptoms reported Genitourinary: No symptoms reported Male Genitourinary: No symptoms reported Musculoskeletal: No symptoms reported Skin: No symptoms reported Hematologic/Lymphatic: No symptoms reported Neurological/Psychological: No symptoms reported -: Yes All other systems reviewed and negative Physical Exam - Vital signs Vitals: Temp Resp 98.1 F 14 03/11/20 18:53 03/11/20 18:53 Interpretation: Normal - General General appearance: Appears well, Alert - HEENT Head: Normocephalic, Atraumatic Eyes: Normal Pupils: PERRL Neck: Other - Incision consistent with surgical history. Clean dry and intact - Respiratory Respiratory status: No respiratory distress Chest status: Nontender Breath sounds: Normal Chest palpation: Normal - Cardiovascular Rhythm: Regular Heart sounds: Normal auscultation Murmur: No - Abdominal Inspection: Normal Distension: No distension Bowel sounds: Normal Tenderness: Nontender Organomegaly: No organomegaly - Back Back: Normal, Nontender - Extremities General upper extremity: Normal inspection, Nontender, Normal color, Normal ROM, Normal temperature General lower extremity: Normal inspection, Nontender, Normal color, Normal ROM, Normal temperature, Normal weight bearing. No: Godfrey's sign - Neurological Neuro grossly intact: Yes Cognition: Normal Orientation: AAOx4 [place] Coma Scale Eye Opening: Spontaneous [place] Coma Scale Verbal: Oriented [place] Coma Scale Motor: Obeys Commands Tonya Coma Scale Total: 15 Speech: Normal Motor strength normal: LUE, RUE, LLE, RLE Sensory: Normal - Psychological Associated symptoms: Normal affect, Normal mood - Skin Skin Temperature: Warm Skin Moisture: Dry Skin Color: Normal Course - Re-evaluation Re-evalutation: 03/11/20 23:58 Patient is a 74-year-old male who had an episode of syncope and chest pain prior to arrival. Patient informs me he had a clean catheterization in 2018. No further episodes of hypotension here. Blood work benign. Troponin negative x2. Patient with no further concerns or complaints. I have spoken to him and his family member about admission as I would prefer that he stay in the hospital due to the chest pain, syncope, confusion, and hypotension prior to arrival. It is possible that the patient had a seizure possibly related to Ultram. It is also possible that he could have had an arrhythmia that I have not been able to capture here while the patient has been in the emergency department. Regardl ess, the patient states that he is feeling well at this time and he does not want to stay in the hospital. Informs me that he will return immediately if he is not feeling well and family member who lives with him states that she will bring him back immediately if there are any further concerns. He has ambulated in the emergency department. He is not orthostatic. No problems with ambulation. No further complaints or concerns. Call multifocal button inspector in the morning. Follow-up with PMD this week. Understands and agrees with plan. Grateful for care. - Vital Signs Vital signs: Temp Pulse Resp BP Pulse Ox 98.1 F 92 22 H 158/92 H 97 03/12/20 00:17 03/11/20 23:54 03/12/20 00:00 03/11/20 23:54 03/12/20 00:00 - Laboratory Result Diagrams: 03/11/20 17:00 03/11/20 17:00 Laboratory results interpreted by me: 03/11/20 03/11/20 17:00 17:00 WBC 12.9 H RBC 4.30 L Hgb 13.3 L Lymph % (Auto) 11.3 L Absolute Neuts (auto) 10.6 H Seg Neutrophils % 82.1 H Glucose 143 H Creatine Kinase 31 L Total Protein 6.2 L - Diagnostic Test Radiology reviewed: Reports reviewed - CTA chest abdomen pelvis within normal limits - EKG Interpretation by Me EKG shows normal: Sinus rhythm Rate: Normal Rhythm: NSR Discharge - Discharge Clinical Impression: Syncope Qualifiers: Syncope type: unspecified Qualified Code(s): R55 - Syncope and collapse Chest pain Qualifiers: Chest pain type: unspecified Qualified Code(s): R07.9 - Chest pain, unspecified Condition: Stable Disposition: HOME, SELF-CARE Instructions: Chest Pain of Unclear Cause ([facility]), Syncopal Episode ([facility]) Additional Instructions: Please call your multifocal button inspector in the morning. Referrals: ZAIDA OCHOA MD [NO LOCAL MD] - Follow up in 3-5 days I personally performed the services described in the documentation, reviewed and edited the documentation which was dictated to the scribe in my presence, and it accurately records my words and actions.
--- NOTE | 2020-03-12 09:27 | EKG REPORT ---
SEVERITY:- ABNORMAL ECG - SINUS RHYTHM FIRST DEGREE AV BLOCK LVH WITH SECONDARY REPOLARIZATION ABNORMALITY ANTERIOR Q WAVES, POSSIBLY DUE TO LVH : Confirmed by: Renee Ricci 12-Mar-2020 09:25:18
== END 2020-03-12 00:30 | disposition home or self-care (01) ==
LOC: ER 18:45
DX: R55 Syncope and collapse (principal); R07.9 Chest pain, unspecified; R41.82 Altered mental status, unspecified; R05 Cough; R06.02 Shortness of breath; Z98.890 Other specified postprocedural states; Z88.0 Allergy status to penicillin; I10 Essential (primary) hypertension; E11.9 Type 2 diabetes mellitus without complications
CPT/HCPCS: 36415; 71045; 71275; 74174; 80053; 82550; 82553; 84484; 85025; 93005; 93010; 99285